=== PATIENT | female | born 1970 | race Caucasian/White ===

== ENCOUNTER 2016-10-26 18:48 | Emergency (ER) | payer OTHER ==
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
[2016-10-26] MEDS ORDERED: ACETAMINOPHEN 325 MG TABLET PO ONE (19:34)
[2016-10-26] MEDS ORDERED: IBUPROFEN 600 MG TABLET PO ONE (23:48)
[2016-10-26] MEDS ORDERED: ONDANSETRON 4 MG TAB.RAPDIS PO ONE (23:48)
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
[2016-10-27 00:13] VITALS: BP 152/90
== END 2016-10-27 | disposition home or self-care (01) ==
LOC: ER 18:48
DX: S09.90XA Unspecified injury of head, initial encounter (principal); R51 Headache; V49.40XA Driver injured in collision with unspecified motor vehicles in traffic accident, initial encounter
CPT/HCPCS: 99283; 70450; S0119